=== PATIENT | female | born 1975 | race Caucasian/White ===

== ENCOUNTER 2024-08-07 15:37 | Outpatient (AMB) | payer BC, SELFPAY ==
--- NOTE | 2024-08-07 15:50 | AMB.GYNCLNOT ---
Vital Signs 08/07/24 15:51 Height 1.63 m Height Method Stated Weight 64.467 kg Weight Measurement Method Standing Scale BMI 24.3 BP 117/73 Blood Pressure Source Automatic Cuff Blood Pressure Location Right Upper Arm Position Sitting Respiration 18 Pulse 72 Pulse Source Monitor Temp 97.9 F Temp Source Temporal Artery Scan Pulse Oximetry (%) 98 Oxygen Delivery Method Room Air Allergies/Home Meds Allergies & Medications Allergies No Known Allergies Allergy (Verified 08/07/24 15:53) Medication Reconciliation No Known Home Medications 08/07/24 [History Confirmed 08/07/24] Intake Visit Data Collection New Patient or Established: New Patient (never been to [facility]) Reason for Visit:: chacho women exam Do You Feel Safe at Home: Yes Authorities Contacted: N/A PCP or OBGYN visit in last 3 months: Yes Are you currently on any form of Control: No Last menstrual period: 07/31/24 Pain Present Currently: No Smoking Status Smoking Status: Never smoker 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 1. Little interest or pleasure in doing things: not at all 2. 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 She has 18, 16 y/o sons & 11 y/o girl Tobacco History Smoking Status: Never smoker Alcohol History Alcohol Intake: Never Domestic Abuse History Do You Feel Safe at Home: Yes Past Medical History Past Medical History Have you ever been diagnosed with any of the following: History of Present Illness HPI Narrative The patient is a 49-year-old -0-0-3 who used to see me in [place] who presents for an annual exam. She reports her cycles are very irregular. She had one in March 2024 and then not another 88 days then she had a 2-week cycle then 11 days off and then another cycle. She reports hot flashes especially around Alessandra, these have gotten a little better. She is interested in hearing about hormone replacement therapy. Her son Melecio is a yolanda in high school he is 18 her son Edgard is a freshman in high school he is 15 and her daughter Doreen is in sixth grade and she is 11. Patient also feels emotional. And that her moods are all over the place. They are using condoms for contraception. After a nice discussion about the risks and benefits of hormone replacement therapy versus IUD and patch versus low-dose control pills in the form of low Loestrin or a NuvaRing, the patient is going to see how her symptoms go. She would like labs to check her thyroid as she has a history of hypothyroidism and has not had this drawn in a while. She already has a mammogram scheduled for September. Dr. Jfafe is her primary care. Review of Systems Review of Systems Narrative Review of Systems: Occasional hot flashes. Irregular bleeding. Moodiness. No abnormal discharge. No painful intercourse. No breast complaints. No urinary complaints. Exam General General Appearance: alert, in no apparent distress, comfortable, cooperative, healthy appearing, well developed and well groomed Neck Neck exam: Present normal inspection, full ROM and trachea midline Chest Chest inspection: Present normal inspection and symmetric chest wall rise Exp Chest Breast: bilateral: other (Normal breast exam bilaterally) Resp Respiratory exam: Present normal lung sounds bilaterally Card Cardiovascular exam: Present regular rate, normal rhythm and normal heart sounds Abdominal Abdominal exam: Present soft and normal bowel sounds External exam: Present normal external exam Speculum exam: Present normal speculum exam Bimanual exam: Present normal bimanual exam Extremities Extremities exam: Present normal inspection and full ROM Psych Psychiatric exam: Present normal affect and normal mood Skin Skin exam: Present warm, dry, intact and normal color Other Other exam information: 2+ cystocele 1-2+ uterine prolapse present uterus is anteverted Assessment & Plan Diagnosis / Problem List (1) Hot flashes due to menopause: Status: Acute Assessment and Plan: FSH estradiol ordered. Hormones discussed. 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 Will check labs. (4) Women's annual routine gynecological examination: Status: Acute Assessment and Plan: Pap with cotesting HPV was performed patient patient has mammogram scheduled for September in [place]. 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
[2024-08-07 15:51] VITALS: BP 117/73; PULSE 72; RESP 18; TEMP 36.6; O2SAT 98; BMI 24.3
== END 2024-08-07 16:31 | disposition home or self-care (01) ==
LOC: HODSOBC 15:37
PROVIDERS: PCP Internal Medicine; Referring Provider Internal Medicine; Supervising Provider Obstetrics & Gynecology; Visit Provider Obstetrics & Gynecology
DX: Z01.411 Encounter for gynecological examination (general) (routine) with abnormal findings (principal); Z11.51 Encounter for screening for human papillomavirus (HPV); N81.4 Uterovaginal prolapse, unspecified; N95.1 Menopausal and female climacteric states; E06.3 Autoimmune thyroiditis; E03.9 Hypothyroidism, unspecified; R23.2 Flushing; Z79.890 Hormone replacement therapy
CPT/HCPCS: 99203; Q0091; G0463

== ENCOUNTER → 2024-08-07 | Outpatient (CLI) | payer BC, OTHER, SELFPAY ==
[2024-08-07 18:06] LABS: Calcium 9.5 mg/dL (8.3-10.6); Free T3 2.9 pg/mL (2.3-4.2); Free T4 (Free Thyroxine) 1.33 ng/dL (0.89-1.76); Thyroid Stimulating Hormone 3.02 uIU/mL (0.55-4.78)
[2024-08-07 18:13] LABS: Follicle Stimulating Hormone 50.49 mIU/mL (See Note); Vitamin D 25 Hydroxy Total 83.8 ng/mL (7.3-40.2)
== END | disposition home or self-care (01) ==
LOC: COPL 16:52
PROVIDERS: PCP Internal Medicine; Referring Provider Obstetrics & Gynecology; Visit Provider Obstetrics & Gynecology
DX: E03.9 Hypothyroidism, unspecified (principal); E06.3 Autoimmune thyroiditis; N95.1 Menopausal and female climacteric states
CPT/HCPCS: 36415; 82306; 82310; 82670; 82681; 83001; 84439; 84443; 84481; 86376

== ENCOUNTER 2024-10-09 10:34 | Outpatient (AMB) | payer BC, OTHER, SELFPAY ==
--- NOTE | 2024-10-09 10:36 | AMB.GYNCLNOT ---
Allergies/Home Meds Allergies & Medications Allergies No Known Allergies Allergy (Verified 10/09/24 10:36) Medication Reconciliation estradiol 0.025 mg/24 hr semiweekly transdermal patch 1 patch transdermal 10/09/24 [History Confirmed 10/09/24] levothyroxine 50 mcg tablet 50 mcg PO QDAY 10/09/24 [History Confirmed 10/09/24] naltrexone 1.5 mg capsule mg PO 10/09/24 [History Confirmed 10/09/24] progesterone micronized 100 mg capsule 100 mg PO QAM 10/09/24 [History Confirmed 10/09/24] Intake Visit Data Collection New Patient or Established: Established Patient (seen at [facility] within 3 years) Reason for Visit:: TELE MED/ LAB RESULTS Seen by Clinical Staff ONLY (RN/MA): No Employee Benefits Specialist Required: No Do You Feel Safe at Home: Yes Authorities Contacted: N/A PCP or OBGYN visit in last 3 months: No Hx Now: No Are you currently on any form of Control: Yes Last menstrual period: 07/31/24 Pain Present Currently: No Pain Scale Used: Kerr-Portillo/Numerical Pain scale:: 0 Smoking Status Smoking Status: Never smoker For Telemed visit only Telemed Video/Phone Visit: Yes Verbal consent obtained for Telemed visit?: Yes Verbal Consent witness name: CODY RICHEY Telemed Video/Phone visit w/Clinical Staff: 5-10 min 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 1. Little interest or pleasure in doing things: not at all 2. Feeling down, depressed, or hopeless: not at all Total score: 0 PHQ-9 3. Trouble falling or staying asleep, or sleeping too much: Not at all 4. Feeling tired or having little energy: Not at all 5. Poor appetite or overeating: Not at all 6. Feeling bad about yourself - or that you are a failure or have let yourself or your family down: Not at all 7. Trouble concentrating on things, such as reading the newspaper or watching television: Not at all 8. Moving or speaking so slowly that other people could have noticed? - Or the opposite - being so fidgety or restless that you have been moving around a lot more than usual: not at all 9. Thoughts that you would be better off or of hurting yourself in some way: Not at all Total score: 0 If you checked off any problems, how difficult have these problems made it for you to do your work, take care of things at home, or get along with other people?: not difficult at all Source: Developed by Drs. Philip Carrera, Clotilde Hernandez, Crow Cedeno and colleagues, with an educational una from [employer]. 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 She was seen for an annual 08/07/2024. She had some perimenopausal hot flashes night sweats. She has a history of thyroid disorder and wanted labs checked. She is calling today to review her labs. Results Objective Laboratory: Her lab results were drawn at [facility] and are on the chart. Her TSH is 3.02 which is normal Free T4 and free T3 are both normal her estradiol was low at 2 her FSH is elevated at 50. Her thyroid peroxidase is elevated it is supposed to be less than 9 and hers is 16. Her Pap was reviewed with [facility] with negative HPV. GC negative. Chlamydia negative. Patient was actually given all her results and she wrote them down. She likes to keep track of her results. She is not considering HRT at this time. And she will follow-up with Dr. Jaffe her primary care about her elevated TPO. She will follow-up with me in 1 year. All questions were answered. Total time on the phone approximately 10 minutes. Office Procedures OB Clinic LOC & Office Proc's Nursing/Assessment Patient Status: Established Patient OB Clinic Nursing Assessment: Medication Reconciliation and Update PMH in EMR OB Clinic Coordination of Care: Complex Care and Chronic Disease 1-5, Consent,records obtained, informed consent, Education Simp Pt/Fam, Results/Orders obtained and Staff clarify orders Established Patient Charge Established Patient Point Assignment: 75 Telehealth If patient is seen using Teleconference methods, complete New/Est section, but DO NOT promise points only promise the correct Telemed visit type Telemed Phone/Video with patient at home & Dr,PA,RANGE OPERATOR: Yes Assessment & Plan Diagnosis / Problem List (1) Nicholas thyroiditis: Status: Acute Assessment and Plan: Labs were reviewed. Normal thyroid function. Elevated TPO. Patient will follow-up with her primary care. (2) Hot flashes due to menopause: Status: Acute Assessment and Plan: FSH is elevated in the 50s. Estrogen is low at 2. Patient at this time is not interested in discussing hormone replacement therapy. She will make an appointment if she wants to discuss this further. Increase in and calcium and vitamin D were encouraged. She will follow-up in 1 year. Additional Plan Follow Up: 1 Year
== END 2024-10-09 12:27 | disposition home or self-care (01) ==
LOC: HODSOBC 10:34
PROVIDERS: PCP Internal Medicine; Referring Provider Internal Medicine; Supervising Provider Obstetrics & Gynecology; Visit Provider Obstetrics & Gynecology
DX: E06.3 Autoimmune thyroiditis (principal); N95.1 Menopausal and female climacteric states; R23.2 Flushing; Z79.890 Hormone replacement therapy
CPT/HCPCS: 99212; G0463